=== PATIENT | male | born 1975 | race Caucasian/White ===

== ENCOUNTER → 2018-08-07 14:30 | Outpatient (CLI) | payer OTHER, SELFPAY ==
--- NOTE | 2018-08-07 14:34 | VDLE_ITS ---
Reason For Study: LEG PAIN RIGHT LEFT GSV is normal. CFV is compressible, spontaneous, phasic, CFV is compressible, spontaneous, phasic, competent, and demonstrates normal competent and demonstrates normal augmentation. augmentation. FV is compressible, spontaneous, phasic, competent and demonstrates normal augmentation. POP V is compressible, spontaneous, phasic, competent and demonstrates normal augmentation. T/P Trunk is compressible. PTV is compressible. RT PerV is compressible. Procedure Exam performed in department. A preliminary report was called and/or faxed to [facility]. Interpretation Summary Deep veins of the right lower extremity are patent and compressible segmentally. There is no evidence of right lower extremity deep vein thrombosis. Valvular competence appears intact within the proximal deep venous system on the right . The right greater saphenous vein appears patent and compressible segmentally. Ordering Physician: Starr Levy Referring Physician: Starr Levy Performed By: Earline Webster RVT
== END ==
PROVIDERS: Family Provider Family Medicine; PCP Family Medicine; Visit Provider Nurse Practitioner Family
DX: M79.661 Pain in right lower leg (principal)
CPT/HCPCS: 93971

== ENCOUNTER 2019-01-10 16:40 | Emergency (ER) | payer OTHER, SELFPAY ==
[2019-01-10 16:42] VITALS: BP 165/92; PULSE 79; RESP 18; TEMP 36.3; O2SAT 99; BMI 36.8
[2019-01-10] MEDS: Tetracaine 0.5% Ophthalmic Bottle 1 DRP RIGHT EYE (18:32)
--- NOTE | 2019-01-10 18:51 | ED.DCSUM_ITS ---
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 Last evening he thought he felt a foreign body sensation in his right eye. He was not able to visualize anything. After sleeping all night he woke up this morning with no pain and thought it was gone. This afternoon pain seemed to return. He does not normally wear glasses or contacts. He states he was wearing eye protection yesterday was using a surface grinder. Physical Examination: Vital signs significant for blood pressure 165/92, otherwise unremarkable. Patient sitting in a well lit room in no acute distress. Head neck examination significant for diffuse conjunctival injection of the right eye. Eyelids are normal. Extraocular movements are intact. Quick look with light does not reveal obvious foreign body. Test Results: [] Emergency Department Course and Treatment: Tetracaine is applied to the eye. This does improve his symptoms somewhat. Slit-lamp examination is performed and there is a small metallic foreign body noted directly over the pupil. Patient is down in the bed. Additional tetracaine drops were applied. Unfortunately I am unable to visualize the foreign body without aid of the slit- lamp. With it being directly over his pupil I do not want to start causing more damage and cause further abrasion. I spoke with ophthalmology and patient can be seen in the office tomorrow. He will be given gentamicin drops to help prevent infection. Treatment Plan: [] Disposition: Discharge Impression: Right corneal foreign body This note was generated with [employer] dictation software. It may contain incorrect words, spelling, and punctuation that were not noted in review of the chart prior to signing ED Disposition - Plan for ED Patient: Disposition: Home or Assisted Living Instructions: ED Foreign Body Cornea Referrals: Cuco Nguyễn MD [STAFF PHYSICIAN] - 1 Day Additional Instructions: Call Dr Nguyễn's office in the morning for an appointment time - he will see you tomorrow. Use 1 drop antibiotic to right eye 4x/day.
[2019-01-10 19:10] VITALS: RESP 16
[2019-01-10] MEDS: Gentamicin Sulfate 1 OPTH.BTL 1 DRP RIGHT EYE (19:10)
== END 2019-01-10 19:11 | disposition home or self-care (01) ==
PROVIDERS: Emergency Provider Emergency Medicine; Family Provider Family Medicine; PCP Family Medicine
DX: T15.01XA Foreign body in cornea, right eye, initial encounter (principal); X58.XXXA Exposure to other specified factors, initial encounter; Y93.89 Activity, other specified; Y92.89 Other specified places as the place of occurrence of the external cause; Y99.0 Civilian activity done for income or pay; E11.9 Type 2 diabetes mellitus without complications; I10 Essential (primary) hypertension; Z79.84 Long term (current) use of oral hypoglycemic drugs; Z79.899 Other long term (current) drug therapy; Z87.442 Personal history of urinary calculi
CPT/HCPCS: 99283

== ENCOUNTER 2019-05-06 13:57 | Emergency (ER) | payer OTHER, SELFPAY ==
[2019-05-06 13:59] VITALS: BP 144/84; PULSE 101; RESP 18; TEMP 36.6; BMI 38.5
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
[2019-05-06] MEDS: diazePAM 5 MG Tablet PO (15:04)
[2019-05-06] MEDS: Orphenadrine 60 MG/2 ML Ampul IM (15:05)
[2019-05-06] MEDS: Ketorolac 60 MG/2 ML Vial IM (15:05)
--- NOTE | 2019-05-06 15:30 | RAD_ITS ---
STUDY: X-RAY - UNILATERAL RIBS ( LEFT ) WITH CHEST REASON FOR EXAM: Male, 44 years old. Left-sided posterior rib pain and left scapula pain since trauma TECHNIQUE - RIBS: 5 view(s) of the ribs. TECHNIQUE - CHEST: Single view COMPARISON: None. FINDINGS -no lung consolidation, pleural effusion or pneumothorax. Cardiac size within normal limits. Osseous structures demonstrate no acute abnormalities. Visualized ribs demonstrate no definite evidence for an acute fracture. Degenerative changes in the costovertebral joints seen. IMPRESSION: No definite evidence for acute left-sided rib fractures. No pneumothorax or consolidation. Electronically Signed: Micah Shipman, at 16:11 EDT Tel , Service support , RAD/Ribs Uni Min 3V w/PA Chest
[2019-05-06 15:36] LABS: D-Dimer Quantitative (DVT/PE) 0.68 FEU/ug/m (0.27-0.49)
--- NOTE | 2019-05-06 15:40 | CT_ITS ---
STUDY: CTA CHEST REASON FOR EXAM: Male, 44 years old. Elevated d-dimer left-sided shoulder blade RADIATION DOSAGE (If Supplied By Facility): CTDIvol = ( 19.74 ) mGy, DLP = ( 902.16 ) mGycm TECHNIQUE: The examination was performed with the intravenous administration of 100 IV Isovue 370. Post-processing of the angiographic images was performed, with multiplanar reformation and 3D reconstruction. Individualized dose optimization techniques were used for this CT. COMPARISON: None. FINDINGS: Pulmonary artery and its branches demonstrate no evidence for filling defects. Thoracic aorta is within normal limits. No pericardial effusion. No lung consolidation, pleural effusion or pneumothorax. Upper abdominal structures demonstrate no discrete mass. The spleen appears somewhat enlarged. Peripancreatic lymph nodes are seen. Hazy groundglass opacities noted bilaterally may relate with pulmonary congestion No evidence for mediastinal adenopathy. Degenerative changes of the thoracic spine. IMPRESSION: No evidence for pulmonary embolism. No evidence for aortic dissection. No consolidative process. Hazy bilateral groundglass opacities may relate with pulmonary congestive changes Electronically Signed: Micah Shipman, at 17:00 EDT Tel , Service support , CT/CTA Chest W/WO Contrast
--- NOTE | 2019-05-06 17:22 | ED.DEP ---
ED Disposition - Plan for ED Patient: Instructions: ED Spasm Muscle Prescriptions: Ibuprofen [Motrin] 800 mg PO TID PRN PRN #20 tablet PRN Reason: Pain cycloBENZAPRine HCl [Flexeril] 10 mg PO TID PRN #20 tablet PRN Reason: Muscle Spasm Referrals: Robert Pablo III, MD [Primary Care Provider] -
[2019-05-06 17:35] VITALS: BP 141/78; PULSE 83; RESP 15
== END 2019-05-06 17:35 | disposition home or self-care (01) ==
PROVIDERS: Emergency Provider Emergency Medicine; Family Provider Family Medicine; PCP Family Medicine
DX: S29.012A Strain of muscle and tendon of back wall of thorax, initial encounter (principal); V86.59XA Driver of other special all-terrain or other off-road motor vehicle injured in nontraffic accident, initial encounter; Y93.9 Activity, unspecified; Y92.9 Unspecified place or not applicable; Y99.9 Unspecified external cause status; E11.9 Type 2 diabetes mellitus without complications; I10 Essential (primary) hypertension; Z79.84 Long term (current) use of oral hypoglycemic drugs; Z79.899 Other long term (current) drug therapy
CPT/HCPCS: 71101; 71275; 85379; 96372; 99284; Q9967

== ENCOUNTER → 2022-06-30 | Outpatient (CLI) | payer OTHER, SELFPAY ==
[2022-06-30 08:32] LABS: Absolute Lymphocyte Count 1.28 X10^3/uL (0.83-4.51); Absolute Neutrophil Count 4.2 X10^3/uL (2.0-7.7); Basophil# 0.04 X10^3/uL; Basophil% 0.7 % (0-1); Eosinophil# 0.05 X10^3/uL; Eosinophils% 0.8 % (0-5); Hematocrit 44.8 % (40-54); Hemoglobin 15.2 g/dL (13.0-16.5); Lymphocyte # 1.28 X10^3/ul (0.83-4.51); Lymphocyte % 21.1 % (19-41); Mean Corp Hgb Conc 33.9 g/dL (32-36); Mean Corpuscular Hgb 31.6 pg (27.0-32.0); Mean Corpuscular Volume 93.1 fL (80-94); Mean Platelet Vol. 11.5 fl (6.2-12.0); Monocyte# 0.45 X10^3/uL; Monocyte% 7.4 % (0-10); NRBC Flagged by Analyzer 0 % (0-5); Neutrophil # 4.24 X10^3/uL (2.7-7.7); Neutrophil % 69.8 % (47-70); POSITIVE COUNT YES; Platelet Count 95 K/mm3 (150-450); RBC Distribution Width CV 11.9 % (11.6-14.6); RBC Distribution Width SD 41.2 fl (35.1-43.9); Red Blood Count 4.81 M/mm3 (4.6-6.2); White Blood Count 6.1 K/mm3 (4.4-11.0)
[2022-06-30 08:50] LABS: Vitamin D,25 Hydroxy 26.6 ng/mL
[2022-06-30 08:52] LABS: Hemoglobin A1c 9.5 % (3.8-5.6)
[2022-06-30 08:58] LABS: ALB/GLOB Ratio 1.1 RATIO (0.9-2.4); AST(SGOT) 60 U/L (15-37); Alanine Aminotransfer ALT/SGPT 124 U/L (16-61); Albumin, Serum 3.9 g/dL (3.2-5.0); Alkaline Phosphatase 120 U/L (45-117); Anion Gap 5 (5-15); BUN 14 mg/dL (7-18); BUN/Creat Ratio 16.6 RATIO (10-20); Calcium,Total 8.5 mg/dL (8.5-10.1); Chloride 100 mmol/L (98-107); Cholesterol 152 mg/dL (200); Creatinine, Serum 0.84 mg/dL (0.70-1.30); EST Glomerular Filtration Rate 103 mL/min (>60); Est Glom Filt Rate - Afr Amer 125 mL/min (>60); Globulin 3.5 g/dL (2.2-4.2); Glucose 178 mg/dL (74-106); High Density Lipoprotein 39 mg/dL; Protein, Total 7.4 g/dL (6.4-8.2); Sodium Level 136 mmol/L (136-145); Triglycerides 243 mg/dL; Very Low Density Lipoprotein 49 mg/dL (5-40)
== END | disposition home or self-care (01) ==
PROVIDERS: PCP Internal Medicine; Visit Provider Internal Medicine
DX: I10 Essential (primary) hypertension (principal); E11.9 Type 2 diabetes mellitus without complications; E78.1 Pure hyperglyceridemia; E78.00 Pure hypercholesterolemia, unspecified; E66.9 Obesity, unspecified; E55.9 Vitamin D deficiency, unspecified; Z12.5 Encounter for screening for malignant neoplasm of prostate
CPT/HCPCS: 80053; 80061; 82306; 83036; 84153; 84443; 85025; G0103

== ENCOUNTER → 2022-11-08 | Outpatient (CLI) | payer OTHER, SELFPAY ==
[2022-11-08 13:30] LABS: ALB/GLOB Ratio 1.1 RATIO (0.9-2.4); AST(SGOT) 47 U/L (15-37); Alanine Aminotransfer ALT/SGPT 130 U/L (16-61); Albumin, Serum 3.7 g/dL (3.2-5.0); Alkaline Phosphatase 145 U/L (45-117); Anion Gap 6 (5-15); BUN 15 mg/dL (7-18); BUN/Creat Ratio 17.3 RATIO (10-20); Calcium,Total 8.7 mg/dL (8.5-10.1); Chloride 99 mmol/L (98-107); Cholesterol 172 mg/dL (200); Creatinine, Serum 0.87 mg/dL (0.70-1.30); EST Glomerular Filtration Rate 100 mL/min (>60); Est Glom Filt Rate - Afr Amer 120 mL/min (>60); Globulin 3.5 g/dL (2.2-4.2); Glucose 222 mg/dL (74-106); High Density Lipoprotein 36 mg/dL; Potassium 4.2 mmol/L (3.5-5.1); Protein, Total 7.2 g/dL (6.4-8.2); Sodium Level 134 mmol/L (136-145); Triglycerides 365 mg/dL; Very Low Density Lipoprotein 73 mg/dL (5-40)
[2022-11-08 13:34] LABS: Hemoglobin A1c 10.8 % (3.8-5.6)
== END | disposition home or self-care (01) ==
LOC: BIMLAB 11:20
PROVIDERS: PCP Internal Medicine; Referring Provider Internal Medicine; Visit Provider Internal Medicine
DX: I10 Essential (primary) hypertension (principal); E11.9 Type 2 diabetes mellitus without complications; E78.1 Pure hyperglyceridemia; E78.00 Pure hypercholesterolemia, unspecified; E66.9 Obesity, unspecified
CPT/HCPCS: 36415; 80053; 80061; 83036

== ENCOUNTER 2022-11-16 15:10 | Emergency (ER) | payer OTHER, SELFPAY ==
[2022-11-16 15:11] VITALS: BP 146/83; PULSE 97; RESP 16; TEMP 36.4; O2SAT 96; BMI 37.5
--- NOTE | 2022-11-16 15:35 | ED.RN ---
Patient is aware to go to the [facility] by 6pm for urine drug screen but if still here at 6, will be able to call someone in. [place] does require testing
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
--- NOTE | 2022-11-16 15:54 | RAD_ITS ---
STUDY: X-RAY - RIGHT WRIST REASON FOR EXAM: Male, 47 years old. trauma TECHNIQUE: 3 view(s) of the wrist were obtained. COMPARISON: None. FINDINGS: Normal visualized distal radius and ulna. Normal radiocarpal articulation. Normal distal radioulnar articulation. Normal carpal bones. Normal carpal articulations. Normal carpometacarpal articulation of the thumb. Normal second through fifth carpometacarpal articulations. Normal visualized metacarpal bones. The soft tissue structures are unremarkable. RAD/Wrist min 3 Views IMPRESSION: Normal x-ray examination of the wrist. Electronically Signed: Marques Ponce MD at 16:46 EST ,
--- NOTE | 2022-11-16 15:55 | RAD_ITS ---
STUDY: X-RAY - PELVIS AND RIGHT HIP REASON FOR EXAM: Male, 47 years old. pain, trauma TECHNIQUE: 3 views of the pelvis and hip. COMPARISON: None. FINDINGS: There is a non-specific bowel gas pattern. Normal visualized soft tissue structures. Normal bilateral iliac wings, sacroiliac joints and visualized sacrum. Normal bilateral superior and inferior pubic rami. Normal pubic symphysis. Normal bilateral ischial tuberosities. Normal visualized femoral head. Normal acetabulum. Normal hip joint. RAD/HIP, UNI W/ Pelvis 2-3 Views IMPRESSION: Normal x-ray examination of the pelvis and hip. Electronically Signed: Marques Ponce MD at 16:47 EST ,
--- NOTE | 2022-11-16 15:55 | EDS_ITS ---
HPI History of Present Illness Chief Complaint: Fall Narrative Narrative: 47-year-old male who denies significant past medical history presents with injury mainly to his right side. While he was at work, he was helping to lift a snowplow and move it when the piece that he was holding threw him forward. He fell mainly onto his right side. He was wearing a hard hat. While he may have hit his head, there was no loss of consciousness. He denies any neck pain. No shoulder pain but states he is having pain in his right elbow and right wrist where he fell on it. He is right-hand dominant. He also has pain in his right hip and it is low back, mainly on the right side. He denies any loss of bowel or bladder, no other injury. He states that his current main areas of pain are his right wrist and elbow that is worse with movement, and his right hip and low back. Patient notes that he chronically has 3 vertebrae in his low back that point in different directions for which he has had therapy in the past. [facility] Medical History Arthritis Back problem Bone fracture Diabetes Frequent headaches Gout High cholesterol High triglycerides Hives Hypertension Home Medications cyclobenzaprine 10 mg tablet 10 mg PO TID PRN Muscle Spasm #20 tabs 05/06/19 [Rx Last Taken Unknown] ibuprofen 800 mg tablet 800 mg PO TID PRN PRN Pain #20 tabs 05/06/19 [Rx Last Taken Unknown] allopurinol 300 mg tablet 300 mg PO DAILY #90 tabs 09/30/22 [Rx Last Taken Unknown] lisinopril 20 mg tablet 20 mg PO DAILY #90 tabs 09/30/22 [Rx Last Taken Unknown] metformin 1,000 mg tablet 1,000 mg PO BIDCM #180 tabs 09/30/22 [Rx Last Taken Unknown] simvastatin 10 mg tablet 20 mg PO DAILY #90 tabs 11/01/22 [Rx Last Taken Unk nown] empagliflozin 10 mg tablet 10 mg PO DAILY #30 tabs 11/10/22 [Rx Last Taken Unknown] Allergy/AdvReac Type Severity Reaction Status Date / Time grass pollen Allergy Unknown unknown Verified 11/16/22 15:16 dichloralphenazone AdvReac Other Verified 11/16/22 15:16 [From Midrin] isometheptene mucate AdvReac Other Verified 11/16/22 15:16 [From Midrin] antacids AdvReac Nausea Uncoded 11/16/22 15:16 Family History Father Diabetes Myocardial infarction, Onset Age: 74 Prostate cancer Grandfather Heart disease Mother Hypertension Surgical History History of ankle surgery History of bunionectomy of both great toes History of knee surgery History of nasal surgery Social History Smoking Status: Never smoker alcohol intake: never substance use type: does not use what type of physical activity do you participate in: walking frequency: 3-4 times per week ROS ROS ED ROS Narrative Constitutional: No fever, no chills. HEENT: No sore throat. No neck pain. No loss of vision. No rhinorrhea. Cardiovascular: No chest pain. No palpitations. No pedal edema. Respiratory: No cough, no shortness of breath. Abdominal: No abdominal pain. No nausea. No vomiting. Genitourinary: No dysuria. No hematuria. Musculoskeletal: No myalgias. Right wrist and right elbow pain worse with movement. Right hip and right low back pain. Neurologic: No headaches. No dizziness. No lightheadedness. No loss of bowel or bladder. No loss of consciousness. Skin: No rash. No change in color. Psychiatric: No depression. No anxiety. EXAM Physical Exam Narrative Exam Narrative: Afebrile. Vital signs noted. HEENT: Normocephalic. Atraumatic. PERRL, EOMI. Neck soft and supple. No point tenderness or step off. Cardiovascular: Regular rate and rhythm. No murmurs, rubs, or gallops appreciated. Respiratory: No tachypnea. Lungs clear to auscultation bilaterally. Gastrointestinal: Abdomen soft, nontender, with normoactive bowel sounds. No rebound or guarding. Neurological: Awake. Alert. Nonfocal, nonlateralizing. Straight leg raising is negative bilaterally in a semirecumbent position. Neurovascularly intact bilateral lower extremities. Flexion and extension mechanisms intact bilaterally Skin: No rash. Normal color. No pallor. Musculoskeletal: No pedal edema. Full range of motion extremities. No pain with logrolling of right femur. Mild tenderness to palpation right paraspinal area, no palpable step-off. Mild tenderness diffusely right proximal radius near radial head. Full range of motion right wrist. Able to oppose thumb. Const Vital Signs: 11/16/22 15:11 11/16/22 16:33 Temperature 97.6 F L Temperature Source Temporal Pulse Rate 97 Respiratory Rate 16 Respiratory Effort Normal Non-Labored Respiratory Depth Normal Respiratory Pattern Normal Blood Pressure 146/83 H Blood Pressure Mean 104 Pulse Ox 96 Oxygen Delivery Method Room Air Nasal Cannula MDM MDM MDM Narrative Medical decision making narrative: I do not feel that CT of the brain is indicated. I will obtain a CT of his lumbar spine given his right paraspinal musculature pain. I will obtain x-rays of the right wrist, elbow, and pelvis with hip, right. CT of the lumbar spine shows an acute nondisplaced oblique fractures of the lateral aspect of the superior endplate of L2 limited to the anterior column. In discussion with the radiologist over the telephone, he states that this is more through an osteophyte which she has multiple of, and it is not an unstable fracture. My interpretation of his right wrist x-ray shows no acute fracture. My interpretation of his right hip and pelvis x-ray shows no evidence of fracture or dislocation. My interpretation of his right elbow x-ray also shows no fracture or dislocation. At this point in time, I feel he be discharged to follow-up with the [facility] clinic or [place] [employer] provider of his choice. He will take [id number] medications as needed. I feel he can be discharged safely home with follow-up. Return instructions were reviewed. Disposition is discharged home in stable condition. Radiography Diagnostic Testing: Clinical Impression(s) from Imaging Studies Lumbar Spine CT 11/16/22 15:54 IMPRESSION: 1. Acute nondisplaced oblique fractures of the lateral aspect of the superior endplate of L2 limited to the anterior column. 2. Segmental anomaly at L3/L4 with levoscoliosis and diffuse degenerative disc disease. Electronically Signed: Marques Ponce MD at 16:43 EST , ADDENDUM: 11/16/22 2287 IMPRESSION: 1. Acute nondisplaced oblique fractures of the lateral aspect of the superior endplate of L2 limited to the anterior column. 2. Segmental anomaly at L3/L4 with levoscoliosis and diffuse degenerative disc disease. N.B. : The above Results were Read Back by Marques Ponce MD to Mahad Taylor MD, and understanding confirmed on 11/16/2022 16:50:40 (ET). Electronically Signed: Marques Ponce MD at 16:43 EST Reading Location ID and State: [id number] / [employer] Tel , Service support , Wrist X-Ray 11/16/22 15:54 IMPRESSION: Normal x-ray examination of the wrist. Electronically Signed: Marques Ponce MD at 16:46 EST Reading Location ID and State: [id number] / [employer] Tel , Service support , Hip/Pelvis X-Ray 11/16/22 15:55 IMPRESSION: Normal x-ray examination of the pelvis and hip. Electronically Signed: Marques Ponce MD at 16:47 EST Reading Location ID and State: [id number] / [employer] Tel , Service support , Elbow X-Ray 11/16/22 16:08 IMPRESSION: No acute fracture or dislocation. Electronically Signed: Marques Ponce MD at 16:44 EST Reading Location ID and State: [id number] / [employer] Tel , Service support , Discharge Plan Triage Chief Complaint: Fall ED Provider: Mahad Taylor Dx/Rx/DC Orders Clinical Impression: Fall, L2 vertebral fracture, Contusion of elbow, right, Contusion of hip, right, Contusion of right wrist Instructions: ED Contusion, Elbow, ED Mechanical Fall, ED Hip Contusion, ED Transverse Process Fracture Prescriptions: No Action empagliflozin 10 mg tablet 10 mg PO DAILY Qty: 30 3RF cyclobenzaprine 10 MG tablet 10 mg PO TID PRN (Reason: Muscle Spasm) Qty: 20 0RF ibuprofen 800 MG tablet 800 mg PO TID PRN PRN (Reason: Pain) Qty: 20 0RF allopurinol 300 mg tablet 300 mg PO DAILY Qty: 90 3RF lisinopril 20 mg tablet 20 mg PO DAILY Qty: 90 3RF metformin 1,000 mg tablet 1,000 mg PO BIDCM Qty: 180 3RF simvastatin 10 mg tablet 20 mg PO DAILY Qty: 90 3RF Primary Care Provider: Zoraida Wood Referrals: Zoraida Wood MD [Primary Care Provider] - [facility] [Non-Staff] - 1 Day Disposition Disposition: Home, Self Care
--- NOTE | 2022-11-16 16:08 | RAD_ITS ---
STUDY: X-RAY - RIGHT ELBOW REASON FOR EXAM: Male, 47 years old. trauma, pain TECHNIQUE: 3 view(s) of the elbow. COMPARISON: None. FINDINGS: Normal visualized humerus, radius and ulna. Normal radiocapitellar and ulnotrochlear articulations. Enthesophyte of the posterior olecranon at the triceps insertion. The soft tissue structures are unremarkable. RAD/Elbow min 3 Views IMPRESSION: No acute fracture or dislocation. Electronically Signed: Marques Ponce MD at 16:44 EST ,
--- NOTE | 2022-11-16 18:09 | ED.RN ---
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 PT UNABLE TO GO TO [facility] DO TO BEING DISCHARGED AFTER 1800, [facility] CLOS[facility] AT 1800. PT STATES HE WILL GO TOMORROW WHEN CLINIC IS OPEN. PER [facility] DRUG TESTING SCHEDULE, JEYSON HOUSING COORDINATOR. CALL PLACED TO JEYSON, SHE STATES SHE IS NOT HOUSING COORDINATOR, [facility] NOT HAVE ANYONE HOUSING COORDINATOR AND ALL DRUG TESTING WILL NEED TO BE DONE DURING [facility] BUSINESS HOURS. JEYSON WILL ALSO CALL PT'S EMPLOYER AND RELAY MESSAGE THAT PT WAS WILLING BUT UNABLE TO DO DRUG TESTING AT TIME OF ED VISIT.
== END 2022-11-16 18:18 | disposition home or self-care (01) ==
PROVIDERS: Emergency Provider Emergency Medicine; PCP Internal Medicine; Visit Provider Emergency Medicine
DX: S32.029A Unspecified fracture of second lumbar vertebra, initial encounter for closed fracture (principal); S50.01XA Contusion of right elbow, initial encounter; S70.01XA Contusion of right hip, initial encounter; S60.211A Contusion of right wrist, initial encounter; W19.XXXA Unspecified fall, initial encounter
CPT/HCPCS: 72131; 73080; 73110; 73502; 99282

== ENCOUNTER → 2023-03-14 | Outpatient (CLI) | payer OTHER, SELFPAY ==
[2023-03-14 12:57] LABS: AST(SGOT) 49 U/L (15-37); Alanine Aminotransfer ALT/SGPT 117 U/L (16-61); Albumin, Serum 3.7 g/dL (3.2-5.0); Alkaline Phosphatase 161 U/L (45-117); Anion Gap 4 (5-15); BUN 16 mg/dL (7-18); BUN/Creat Ratio 19.5 RATIO (10-20); Calcium,Total 8.7 mg/dL (8.5-10.1); Chloride 100 mmol/L (98-107); Cholesterol 238 mg/dL (200); Creatinine, Serum 0.82 mg/dL (0.70-1.30); EST Glomerular Filtration Rate 106 mL/min (>60); Est Glom Filt Rate - Afr Amer 128 mL/min (>60); Globulin 3.6 g/dL (2.2-4.2); Glucose 299 mg/dL (74-106); High Density Lipoprotein 31 mg/dL; Potassium 3.9 mmol/L (3.5-5.1); Protein, Total 7.3 g/dL (6.4-8.2); Sodium Level 130 mmol/L (136-145); Thyroid Stim Hormone (TSH) 2.33 uIU/mL (0.358-3.74); Triglycerides 756 mg/dL; Uric Acid 4.2 mg/dL (3.5-7.2)
== END | disposition home or self-care (01) ==
LOC: MFPLAB 09:38
PROVIDERS: PCP Internal Medicine; Visit Provider Family Medicine
DX: E11.9 Type 2 diabetes mellitus without complications (principal); M10.9 Gout, unspecified
CPT/HCPCS: 36415; 80053; 80061; 84403; 84443; 84550

== ENCOUNTER → 2023-04-28 | Outpatient (CLI) | payer OTHER, SELFPAY | END | disposition home or self-care (01) | LOC: MFPLAB 08:05 | PROVIDERS: PCP Family Medicine; Visit Provider Family Medicine | DX: Z00.00 Encounter for general adult medical examination without abnormal findings (principal) ==

== ENCOUNTER 2023-04-29 00:24 | Emergency (ER) | payer OTHER, SELFPAY ==
[2023-04-29 00:25] VITALS: BP 157/99; PULSE 95; RESP 14; TEMP 36.4; O2SAT 97; BMI 36.8
--- NOTE | 2023-04-29 00:36 | EX.ED.VIS.PS ---
HPI HPI - Psych History of Present Illness Chief Complaint: Suicidal Detail of Chief Complaint: Suicidal thoughts Informant: patient Narrative Narrative: Patient presents to the emergency department brought by police. He had had an argument with his and they have been having some marital issues that they are working through. Patient became upset and went outside and took his pistol with him. He does state that he had a fleeting thought of self-harm but does not think he would actually shoot himself or harm himself. called police and patient agreed to come to the ER voluntarily. Currently not feeling like he wants to harm himself. He is never made attempt to harm himself before. He has no psychiatric history otherwise. Not currently medicated for depression or anxiety. He denies feeling homicidal. He denies hallucinations. When asked why he took the gun with him [place] he was in an be out for a while and there are coyotes but had no intent on harming himself. [facility] Medical History Arthritis Back problem Bone fracture Diabetes Frequent headaches Gout High cholesterol High triglycerides Hives Hypertension Home Medications allopurinol 300 mg tablet 300 mg PO DAILY #90 tabs 09/30/22 [Rx Last Taken Unknown] lisinopril 20 mg tablet 20 mg PO DAILY #90 tabs 09/30/22 [Rx Last Taken Unknown] metformin 1,000 mg tablet 1,000 mg PO BIDCM #180 tabs 09/30/22 [Rx Last Taken Unknown] simvastatin 10 mg tablet 20 mg PO DAILY #90 tabs 11/01/22 [Rx Last Taken Unknown] cyclobenzaprine 10 mg tablet 10 mg PO TID PRN Muscle Spasm #20 tabs 11/26/22 [Rx Last Taken Unknown] semaglutide 7 mg tablet (Rybelsus) 7 mg PO DAILY 04/29/23 [History Last Taken Unknown] Allergy/AdvReac Type Severity Reaction Status Date / Time grass pollen Allergy Unknown unknown Verified 04/29/23 00:33 aluminum hydroxide AdvReac Nausea Verified 04/29/23 00:33 [From Gelusil Antacid and Anti-Gas] dichloralphenazone AdvReac Other Verified 04/29/23 00:33 [From Midrin] isometheptene mucate AdvReac Other Verified 04/29/23 00:33 [From Midrin] magnesium hydroxide AdvReac Nausea Verified 04/29/23 00:33 [From Gelusil Antacid and Anti-Gas] simethicone AdvReac Nausea Verified 04/29/23 00:33 [From Gelusil Antacid and Anti-Gas] Family History Father Diabetes Myocardial infarction, Onset Age: 74 Prostate cancer Grandfather Heart disease Mother Hypertension Surgical History History of ankle surgery History of bunionectomy of both great toes History of knee surgery History of nasal surgery Social History Smoking Status: Never smoker alcohol intake: never substance use type: does not use what type of physical activity do you participate in: walking frequency: 3-4 times per week ROS ROS ED Review of Systems ROS Unobtainable: other Constitutional Constitutional ED: Reports lethargy; Denies chills, fever(s), sweats or weight loss Eyes Eyes: Denies blurry vision, change in vision or diplopia ENT ENT ED: Denies rhinorrhea or sore throat Cardiovascular Cardiovascular: Denies chest pain, orthopnea or racing heartbeat Respiratory/Chest Respiratory/Chest: Denies cough, dyspnea, dyspnea on exertion, orthopnea or sputum Gastrointestinal Gastrointestinal: Denies abdominal pain, diarrhea, nausea or vomiting Genitourinary Genitourinary ED: Denies dysuria, hematuria or urinary frequency Musculoskeletal Musculoskeletal: Denies arthralgias, back pain, myalgias or neck pain Integumentary Denies abscess, Abrasions or rash Neurologic Neurologic: Denies headache(s) or weakness Psychiatric Psychiatric: Denies anxiety, depression or suicidal thoughts Endocrine Endocrinology: Denies polydipsia, polyphagia or polyuria Hematologic/Lymphatic Hematologic/Lymphatic: Denies easy bleeding, easy bruising or lymphadenopathy Allergic/Immunologic Allergic/Immunologic ED: Denies mouth swelling, tongue swelling or urticaria EXAM Physical Exam Const Vital Signs: 04/29/23 00:25 04/29/23 01:24 Temperature 97.5 F L Temperature Source Temporal Pulse Rate 95 Respiratory Rate 14 16 Blood Pressure 157/99 H Blood Pressure Mean 118 Pulse Ox 97 Oxygen Delivery Method Room Air Positive well nourished and well developed General Appearance ED: well developed and NAD HEENT Reports TM's clear and moist mucous membranes normocephalic and atraumatic; Negative for trauma or tenderness Tympanic Membrane ED: Yes TM's clear Eyes PERRL and EOMs intact bilaterally General Eye ED: Negative for pale conjunctiva or scleral icterus Neck no lymphadenopathy, supple and no JVD General: Negative for tenderness Chest Wall inspection of chest normal and palpation of chest normal Chest: Negative for tenderness Resp normal respiratory effort and clear to auscultation bilaterally Effort and Inspection: Negative for respiratory distress or pain with movement Auscultation: Negative for rhonchi, wheezes or diminished lung sounds Cardio regular rate, regular rhythm, S1 normal heart sound, S2 normal heart sound and no murmurs Peripheral Pulses: pulses 2+ throughout GI normal to inspection, nondistended, normoactive bowel sounds, soft to palpation, non-tender, non-distended and no masses Back/Spine no CVA tenderness and no thoracic nor lumbar tenderness Extremity normal to inspection General Extremety ED: Negative for edema General Extremity: Negative for edema Neuro oriented x3, CN's II-XII intact bilaterally, no sensory deficits noted and gait normal Sensorium / Orientation: awake, alert, oriented to person, oriented to place and oriented to time Motor Exam: strength 5/5 throughout and strength abnormal Psych mental status grossly normal Skin no rashes or lesions noted and no wounds MDM MDM MDM Narrative Medical decision making narrative: Patient presents with fleeting thoughts of wanting to harm himself but then thought better of it. Patient presented voluntarily with police officers. He currently denies wanting to harm himself and feels like he can contract for safety. He denies prior history of depression or suicide attempts. Patient had basic labs obtained that were normal as well as urine tox screen and alcohol that were negative. Patient was evaluated by crisis and they feel he can contract for safety. He is in agreement with plan and they can follow-up with him as an outpatient. Crisis attempted to contact patient's however she did not answer the phone and they did live leave a message with her. This point patient will be discharged home and advised to follow-up with the counseling center or return to the ER should he have any concerns about his safety. Patient denies any homicidal ideation. Lab Data Attestation: I reviewed the patient's lab results. Labs: Laboratory Results - last 24 hr 04/29/23 04/29/23 04/29/23 00:41 00:41 00:41 WBC 6.9 RBC 5.10 Hgb 16.2 Hct 46.1 MCV 90.4 MCH 31.8 MCHC 35.1 RDW Std Deviation 39.9 RDW Coeff of Edwin 12.0 Plt Count 90 L MPV 10.9 Immature Gran % (Auto) 0.100 Neut % (Auto) 75.9 H Lymph % (Auto) 15.5 L [place] % (Auto) 7.4 Eos % (Auto) 0.7 Baso % (Auto) 0.4 Absolute Neuts (auto) 5.2 Absolute Lymphs (auto) 1.06 Nucleated RBC % 0 Sodium 137 Potassium 4.1 Chloride 104 Carbon Dioxide 24.0 Anion Gap 9 BUN 18 Creatinine 0.96 Estim Creat Clear Calc 111.25 Est GFR (MDRD) Af Amer 107 Est GFR (MDRD) Non-Af 88 BUN/Creatinine Ratio 18.7 Glucose 310 H Calcium 8.8 Urine Opiates Screen Urine Methadone Screen Ur Barbiturates Screen Ur Phencyclidine Scrn Ur Amphetamines Screen MDMA (Ecstasy) Screen U Benzodiazepines Scrn Urine Cocaine Screen U Cannabinoids Screen Ur Drug Screen Comment Ethyl Alcohol < 3.0 04/29/23 00:55 WBC RBC Hgb Hct MCV MCH MCHC RDW Std Deviation RDW Coeff of Edwin Plt Count MPV Immature Gran % (Auto) Neut % (Auto) Lymph % (Auto) [place] % (Auto) Eos % (Auto) Baso % (Auto) Absolute Neuts (auto) Absolute Lymphs (auto) Nucleated RBC % Sodium Potassium Chloride Carbon Dioxide Anion Gap BUN Creatinine Estim Creat Clear Calc Est GFR (MDRD) Af Amer Est GFR (MDRD) Non-Af BUN/Creatinine Ratio Glucose Calcium Urine Opiates Screen NEGATIVE Urine Methadone Screen NEGATIVE Ur Barbiturates Screen NEGATIVE Ur Phencyclidine Scrn NEGATIVE Ur Amphetamines Screen NEGATIVE MDMA (Ecstasy) Screen NEGATIVE U Benzodiazepines Scrn NEGATIVE Urine Cocaine Screen NEGATIVE U Cannabinoids Screen NEGATIVE Ur Drug Screen Comment Ethyl Alcohol Discharge Plan Triage Chief Complaint: Suicidal ED Provider: Ac Kwan Dx/Rx/DC Orders Clinical Impression: Depression Instructions: CONTRACT, No Harm, ED Depression Prescriptions: No Action cyclobenzaprine 10 mg tablet 10 mg PO TID PRN (Reason: Muscle Spasm) Qty: 20 0RF Rybelsus 7 mg Tablet 7 mg PO DAILY allopurinol 300 mg tablet 300 mg PO DAILY Qty: 90 3RF lisinopril 20 mg tablet 20 mg PO DAILY Qty: 90 3RF metformin 1,000 mg tablet 1,000 mg PO BIDCM Qty: 180 3RF simvastatin 10 mg tablet 20 mg PO DAILY Qty: 90 3RF Primary Care Provider: Sd Cortez Referrals: Sd Cortez MD [Primary Care Provider] - Activity Restrictions/Additional Instructions: Please follow-up with the counseling center as instructed. Disposition Disposition: Home, Self Care
[2023-04-29 00:48] LABS: Absolute Lymphocyte Count 1.06 X10^3/uL (0.83-4.51); Absolute Neutrophil Count 5.2 X10^3/uL (2.0-7.7); Basophil# 0.03 X10^3/uL; Basophil% 0.4 % (0-1); Eosinophil# 0.05 X10^3/uL; Eosinophils% 0.7 % (0-5); Hematocrit 46.1 % (40-54); Hemoglobin 16.2 g/dL (13.0-16.5); Lymphocyte # 1.06 X10^3/ul (0.83-4.51); Lymphocyte % 15.5 % (19-41); Mean Corp Hgb Conc 35.1 g/dL (32-36); Mean Corpuscular Hgb 31.8 pg (27.0-32.0); Mean Corpuscular Volume 90.4 fL (80-94); Mean Platelet Vol. 10.9 fl (6.2-12.0); Monocyte# 0.51 X10^3/uL; Monocyte% 7.4 % (0-10); NRBC Flagged by Analyzer 0 % (0-5); Neutrophil % 75.9 % (47-70); POSITIVE COUNT YES; Platelet Count 90 K/mm3 (150-450); RBC Distribution Width SD 39.9 fl (35.1-43.9); White Blood Count 6.9 K/mm3 (4.4-11.0)
[2023-04-29 01:08] LABS: Alcohol, Blood (Medical)-Serum < 3.0 mg/dL; Anion Gap 9 (5-15); BUN 18 mg/dL (7-18); BUN/Creat Ratio 18.7 RATIO (10-20); Calcium,Total 8.8 mg/dL (8.5-10.1); Chloride 104 mmol/L (98-107); Creatinine, Serum 0.96 mg/dL (0.70-1.30); EST Glomerular Filtration Rate 88 mL/min (>60); Est Glom Filt Rate - Afr Amer 107 mL/min (>60); Estimated Creatinine Clearance 111.25 ml/min; Glucose 310 mg/dL (74-106); Potassium 4.1 mmol/L (3.5-5.1); Sodium Level 137 mmol/L (136-145)
[2023-04-29 01:24] VITALS: RESP 16
--- NOTE | 2023-04-29 01:31 | NURSING ---
CALLED CRISIS AT [id number]
[2023-04-29 02:04] LABS: Amphetamine Urine VISTA NEGATIVE (<1000 ng/mL); Barbiturate Urine VISTA NEGATIVE (< 200 ng/mL); Benzodiazepine Urine VISTA NEGATIVE (< 200 ng/mL); Cocaine Urine VISTA NEGATIVE (< 300 ng/mL); Ecstacy Urine VISTA NEGATIVE (< 500 ng/mL); Methadone Urine VISTA NEGATIVE (< 300 ng/mL); PCP Urine VISTA NEGATIVE (< 25 ng/mL); THC Urine VISTA NEGATIVE (< 50 ng/mL); Vista UDS pH Range 4
[2023-04-29 02:20] VITALS: BP 149/74; PULSE 87; RESP 17; O2SAT 99
--- NOTE | 2023-04-29 02:45 | ED.RN ---
SAFETY PLAN SIGNED BY PT AND IN AGREEMENT WITH PLAN. COPY GIVEN TO PT AND ORIGINAL IN CHART.
== END 2023-04-29 02:56 | disposition home or self-care (01) ==
PROVIDERS: Emergency Provider Emergency Medicine; PCP Family Medicine; Visit Provider Emergency Medicine
DX: F32.A Depression, unspecified (principal); E11.9 Type 2 diabetes mellitus without complications; Z63.0 Problems in relationship with spouse or partner; E78.00 Pure hypercholesterolemia, unspecified; R45.851 Suicidal ideations; I10 Essential (primary) hypertension; M10.9 Gout, unspecified; Z79.84 Long term (current) use of oral hypoglycemic drugs; Z79.899 Other long term (current) drug therapy
CPT/HCPCS: 80048; 80307; 82077; 85025; 87426; 99283

== ENCOUNTER → 2024-01-16 | Outpatient (CLI) | payer OTHER, SELFPAY ==
[2024-01-16 10:56] LABS: Vitamin B12 498 pg/mL (211-911)
[2024-01-16 11:29] LABS: AST(SGOT) 68 U/L (15-37); Alanine Aminotransfer ALT/SGPT 146 U/L (16-61); Albumin, Serum 3.8 g/dL (3.2-5.0); Alkaline Phosphatase 186 U/L (45-117); Anion Gap 5 (5-15); BUN 13 mg/dL (7-18); BUN/Creat Ratio 15.5 RATIO (10-20); Chloride 100 mmol/L (98-107); Cholesterol 150 mg/dL (200); Creatinine, Serum 0.84 mg/dL (0.70-1.30); EST Glomerular Filtration Rate 103 mL/min (>60); Est Glom Filt Rate - Afr Amer 125 mL/min (>60); Globulin 3.7 g/dL (2.2-4.2); Glucose 253 mg/dL (74-106); High Density Lipoprotein 39 mg/dL; PSA,Total - Annual Screen 0.37 ng/mL (0.00-4.00); Potassium 4.3 mmol/L (3.5-5.1); Protein, Total 7.5 g/dL (6.4-8.2); Sodium Level 135 mmol/L (136-145); Thyroid Stim Hormone (TSH) 2.63 uIU/mL (0.358-3.74); Triglycerides 256 mg/dL; Very Low Density Lipoprotein 51 mg/dL (5-40)
== END | disposition home or self-care (01) ==
PROVIDERS: PCP Family Medicine; Referring Provider Family Medicine; Visit Provider Family Medicine
DX: Z12.5 Encounter for screening for malignant neoplasm of prostate (principal); E11.65 Type 2 diabetes mellitus with hyperglycemia; E78.5 Hyperlipidemia, unspecified
CPT/HCPCS: 36415; 80053; 80061; 82607; 84153; 84403; 84443; G0103

== ENCOUNTER 2024-03-05 17:40 | Emergency (ER) | payer OTHER, SELFPAY ==
[2024-03-05 17:40] VITALS: BP 167/90; PULSE 93; RESP 20; TEMP 36.4; O2SAT 96; BMI 38.4
--- NOTE | 2024-03-05 18:22 | CT_ITS ---
EXAM: CT ABDOMEN AND PELVIS WITH INTRAVENOUS CONTRAST CLINICAL INDICATION: llq abdominal pain TECHNIQUE: Helically acquired images were obtained of the abdomen and pelvis with intravenous contrast. This CT exam was performed using one or more of the following dose reduction techniques: automated exposure control, adjustment of the mA and/or kV according to patient size, and/or use of iterative reconstruction technique. CONTRAST: IV 100mL Isovue-300 COMPARISON: No relevant prior studies available. FINDINGS: LOWER THORAX: Unremarkable. Lung bases are clear. No cardiomegaly. No significant pericardial effusion. ABDOMEN: LIVER: The liver is diffusely decreased in attenuation compatible with fatty infiltration. GALLBLADDER AND BILE DUCTS: Unremarkable. No calcified gallstones. No gallbladder distention or wall edema. No intra- or extrahepatic biliary ductal dilation. PANCREAS: Unremarkable. No focal cystic or solid mass. SPLEEN: Unremarkable. Normal size without focal cystic or solid mass. ADRENALS: Unremarkable. No nodules. KIDNEYS AND URETERS: Unremarkable. Normal renal size and position. No hydronephrosis. STOMACH AND BOWEL: There are diverticula seen in the descending and sigmoid colon with very minimal inflammation surrounding the distal descending colon which may represent early diverticulitis. There is no abscess or perforation. There is also minimal inflammation in the fat surrounding the rectum. No stomach or bowel distention. PELVIS: APPENDIX: No evidence of acute appendicitis. BLADDER: Unremarkable. REPRODUCTIVE: Unremarkable as visualized. No mass. ABDOMEN and PELVIS: INTRAPERITONEAL SPACE: Unremarkable. No ascites or other fluid collection. No free air. BONES/JOINTS: Unremarkable. No suspicious lytic or blastic abnormality. SOFT TISSUES: Unremarkable. No discrete abdominal or pelvic wall hernia. VASCULATURE: Unremarkable. Abdominal aorta is non-dilated. LYMPH NODES: Unremarkable. No enlarged lymph nodes. CT/Abdomen/Pelvis W IV Cont ONLY IMPRESSION: Diverticula in the descending colon with minimal surrounding inflammation which may represent early diverticulitis. There is also minimal haziness in the fat surrounding the rectum possibly representing proctitis. There is no abscess or perforation. Electronically Signed: Gonzales Mckeon MD at 19:43 EDT ,
[2024-03-05 18:23] LABS: Absolute Lymphocyte Count 1.29 X10^3/uL (0.83-4.51); Absolute Neutrophil Count 4.6 X10^3/uL (2.0-7.7); Basophil# 0.03 X10^3/uL; Basophil% 0.5 % (0-1); Eosinophil# 0.05 X10^3/uL; Eosinophils% 0.8 % (0-5); Hematocrit 43.5 % (40-54); Hemoglobin 15.2 g/dL (13.0-16.5); Lymphocyte # 1.29 X10^3/ul (0.83-4.51); Lymphocyte % 19.7 % (19-41); Mean Corp Hgb Conc 34.9 g/dL (32-36); Mean Corpuscular Hgb 32.1 pg (27.0-32.0); Mean Corpuscular Volume 91.8 fL (80-94); Monocyte# 0.58 X10^3/uL; Monocyte% 8.8 % (0-10); NRBC Flagged by Analyzer 0 % (0-5); POSITIVE COUNT YES; Platelet Count 92 K/mm3 (150-450); RBC Distribution Width CV 12.1 % (11.6-14.6); RBC Distribution Width SD 40.5 fl (35.1-43.9); Red Blood Count 4.74 M/mm3 (4.6-6.2); White Blood Count 6.6 K/mm3 (4.4-11.0)
[2024-03-05 18:38] LABS: Anion Gap 7 (5-15); BUN 16 mg/dL (7-18); Chloride 103 mmol/L (98-107); Creatinine, Serum 0.89 mg/dL (0.70-1.30); EST Glomerular Filtration Rate 96 mL/min (>60); Est Glom Filt Rate - Afr Amer 117 mL/min (>60); Glucose 134 mg/dL (74-106); Potassium 4.1 mmol/L (3.5-5.1); Sodium Level 136 mmol/L (136-145)
[2024-03-05 19:17] VITALS: BP 151/80; PULSE 82; RESP 19; O2SAT 96
[2024-03-05 19:26] LABS: Bacteria 0 SEEN /hpf (None Seen); Mucous, Urine 0 SEEN /hpf (<or=2+); Red Blood Cells-Urine 0 SEEN /hpf (0-5)
[2024-03-05 19:30] LABS: Color, Urine Yellow (Yellow); Glucose, Dipstick Normal (Normal); Ketone-Dipstick Negative (Negative); Leukocyte Esterase-Dipstick 25 /ul (Negative); Nitrite-Dipstick Negative (Negative); Occult Blood-Urine Negative /ul (Negative); Protein-Dipstick 15 mg/dl (Negative); Specific Gravity, Urine 1.015 (1.002-1.030); Urine Bilirubin Dipstick Negative (Negative); Urine Clarity Sl. Cloudy (Clear); Urine Urobilinogen Normal (Normal)
[2024-03-05] MEDS: Ondansetron 4 MG/2 ML Vial IV (19:59)
[2024-03-05 20:06] LABS: White Blood Cells 5-10 SEEN /hpf (0-5)
[2024-03-05 20:07] LABS: Squamous Epithelial Cells - UA 0-5 SEEN /hpf (0-5)
--- NOTE | 2024-03-05 20:45 | EDS_ITS ---
HPI HPI - GI History of Present Illness Chief Complaint: Flank Pain Narrative Narrative: 48-year-old male presenting with left lower quadrant abdominal pain which started really overnight and yesterday in the evening. He has had some GI discomfort with the last couple of weeks but it is really localized to left lower quadrant since then. The patient also has nausea. He had no diarrhea or constipation. No fevers at home. He is intermittently nauseous. Patient has history of kidney stone in the past but does not feel particularly the same. He does have history of diverticulitis as well. PFSH PFS Medical History Arthritis Back problem Bone fracture Diabetes Frequent headaches Gout High cholesterol High triglycerides Hives Hypertension Home Medications allopurinol 300 mg tablet 300 mg PO DAILY #90 tabs 09/30/22 [Rx Last Taken Unknown] lisinopril 20 mg tablet 20 mg PO DAILY #90 tabs 09/30/22 [Rx Last Taken Unknown] metformin 1,000 mg tablet 1,000 mg PO BIDCM #180 tabs 09/30/22 [Rx Last Taken Unknown] simvastatin 10 mg tablet 20 mg (2 x 10 mg) PO DAILY #90 tabs 11/01/22 [Rx Last Taken Unknown] cyclobenzaprine 10 mg tablet 10 mg PO TID PRN Muscle Spasm #20 tabs 11/26/22 [Rx Last Taken Unknown] glimepiride 2 mg tablet 2 mg PO DAILY 07/10/23 [History Last Taken Unknown] semaglutide 7 mg tablet (Rybelsus) 14 mg PO DAILY 07/10/23 [History Last Taken Unknown] amoxicillin 875 mg-potassium clavulanate 125 mg tablet 1 tab PO BID #20 tabs 03/05/24 [Rx Last Taken Unknown] ondansetron 4 mg disintegrating tablet 4 mg PO Q8H PRN PRN Nausea #14 tabs 03/05/24 [Rx Last Taken Unknown] Allergy/AdvReac Type Severity Reaction Status Date / Time grass pollen Allergy Unknown unknown Verified 07/10/23 09:36 aluminum hydroxide AdvReac Nausea Verified 07/10/23 09:36 [From Gelusil Antacid and Anti-Gas] dichloralphenazone AdvReac Other Verified 07/10/23 09:36 [From Midrin] isometheptene mucate AdvReac Other Verified 07/10/23 09:36 [From Midrin] magnesium hydroxide AdvReac Nausea Verified 07/10/23 09:36 [From Gelusil Antacid and Anti-Gas] simethicone AdvReac Nausea Verified 07/10/23 09:36 [From Gelusil Antacid and Anti-Gas] Family History Father Diabetes Myocardial infarction, Onset Age: 74 Prostate cancer Grandfather Heart disease Mother Hypertension Surgical History History of ankle surgery History of bunionectomy of both great toes History of knee surgery History of nasal surgery Social History Smoking Status: Never smoker alcohol intake: never substance use type: does not use what type of physical activity do you participate in: walking frequency: 3-4 times per week ROS ROS ED Constitutional Constitutional ED: Denies chills, fever(s) or sweats Eyes Eyes: Denies blurry vision or change in vision ENT ENT ED: Denies ear pain or sore throat Cardiovascular Cardiovascular: Denies chest pain, palpitations or racing heartbeat Respiratory/Chest Respiratory/Chest: Denies cough, dyspnea or sputum Gastrointestinal Gastrointestinal: Reports abdominal pain and nausea; Denies constipation, diarrhea or vomiting Genitourinary Genitourinary ED: Denies dysuria, hematuria or urinary frequency Musculoskeletal Musculoskeletal: Denies arthralgias, myalgias or neck pain Integumentary Denies abscess, Abrasions or rash Neurologic Neurologic: Denies headache(s), paresthesias or weakness Psychiatric Psychiatric: Denies anxiety, depression, suicidal ideation or suicidal thoughts Endocrine Endocrinology: Denies polydipsia or polyuria EXAM Physical Exam Const Vital Signs: 03/05/24 17:40 03/05/24 19:17 Temperature 97.5 F L Temperature Source Temporal Pulse Rate 93 82 Respiratory Rate 20 H 19 H Blood Pressure 167/90 H 151/80 H Blood Pressure Mean 115 103 Pulse Ox 96 96 Oxygen Delivery Method Room Air Room Air Positive well nourished General Appearance ED: NAD HEENT Reports moist mucous membranes normocephalic Eyes PERRL Neck no lymphadenopathy Resp normal respiratory effort Cardio regular rate and regular rhythm GI Palpation: tender LLQ Back/Spine no CVA tenderness Neuro CN's II-XII intact bilaterally Sensorium / Orientation: alert Psych mental status grossly normal Skin no wounds MDM MDM MDM Narrative Medical decision making narrative: Patient presenting with left lower quadrant abdominal pain is able to localize this. On examination he is tender in this area without any rebound or guarding. No CVA tenderness. Differential includes kidney stone, UTI, pyelonephritis, diverticulitis, colitis, constipation. CBC was obtained to assess white blood cell count, hemoglobin, platelets. BMP to assess renal function, electrolytes, glucose. Urinalysis to assess for UTI and or occult blood. Patient medicated with Toradol as he does not want a thing stronger for pain is given Zofran for nausea. CT of the abdomen pelvis IV contrast was obtained and shows mild uncomplicated early diverticulitis. Patient counseled on findings. Patient was started on Augmentin with first dose in the ER. He is given Zofran and Augmentin here in the ER and sent home with medications via meds to beds. Return precautions discussed. Discharged home in stable condition. Impression: 1. Abdominal pain 2. Acute uncomplicated diverticulitis 3. Nausea Lab Data Attestation: I reviewed the patient's lab results. Labs: Laboratory Results - last 24 hr 03/05/24 03/05/24 18:15 19:15 WBC 6.6 RBC 4.74 Hgb 15.2 Hct 43.5 MCV 91.8 MCH 32.1 H MCHC 34.9 RDW Std Deviation 40.5 RDW Coeff of Edwin 12.1 Plt Count 92 L MPV 11.0 Immature Gran % (Auto) 0.200 Neut % (Auto) 70.0 Lymph % (Auto) 19.7 [place] % (Auto) 8.8 Eos % (Auto) 0.8 Baso % (Auto) 0.5 Absolute Neuts (auto) 4.6 Absolute Lymphs (auto) 1.29 Nucleated RBC % 0 Sodium 136 Potassium 4.1 Chloride 103 Carbon Dioxide 26.0 Anion Gap 7 BUN 16 Creatinine 0.89 Estim Creat Clear Calc 151.20 Est GFR (MDRD) Af Amer 117 Est GFR (MDRD) Non-Af 96 BUN/Creatinine Ratio 18.0 Glucose 134 H Calcium 9.0 Urine Color Yellow Urine Clarity Sl. Cloudy Urine pH 6.0 Ur Specific [place] 1.015 Urine Protein 15 H Urine Glucose (UA) Normal Urine Ketones Negative Urine Occult Blood Negative Urine Nitrite Negative Urine Bilirubin Negative Urine Urobilinogen Normal Ur Leukocyte Esterase 25 H Urine RBC 0 SEEN Urine WBC 5-10 SEEN Ur Squamous Epith Cells 0-5 SEEN Urine Bacteria 0 SEEN Urine Mucus 0 SEEN Radiography Diagnostic Testing: Clinical Impression(s) from Imaging Studies Abdomen/Pelvis CT 03/05/24 18:22 IMPRESSION: Diverticula in the descending colon with minimal surrounding inflammation which may represent early diverticulitis. There is also minimal haziness in the fat surrounding the rectum possibly representing proctitis. There is no abscess or perforation. Electronically Signed: Gonzales Mckeon MD at 19:43 EDT , Discharge Plan Triage Chief Complaint: Flank Pain ED Provider: Gentry Guzman Dx/Rx/DC Orders Instructions: ED Diverticulitis Prescriptions: New amoxicillin-pot clavulanate 875-125 mg tablet 1 tab PO BID Qty: 20 0RF ondansetron 4 mg tablet,disintegrating 4 mg PO Q8H PRN PRN (Reason: Nausea) Qty: 14 0RF No Action cyclobenzaprine 10 mg tablet 10 mg PO TID PRN (Reason: Muscle Spasm) Qty: 20 0RF glimepiride 2 mg tablet 2 mg PO DAILY Rybelsus 7 mg tablet 14 mg PO DAILY allopurinol 300 mg tablet 300 mg PO DAILY Qty: 90 3RF lisinopril 20 mg tablet 20 mg PO DAILY Qty: 90 3RF metformin 1,000 mg tablet 1,000 mg PO BIDCM Qty: 180 3RF simvastatin 10 mg tablet 20 mg PO DAILY Qty: 90 3RF Primary Care Provider: Carmine Cortez Referrals: Carmine Cortez MD [Primary Care Provider] - Disposition Disposition: Home, Self Care
[2024-03-05] MEDS: Ketorolac 15 MG/ML Vial IV (21:14)
[2024-03-05] MEDS: Amox/Clavulanate 875 MG Tablet PO (21:17)
[2024-03-05 21:20] VITALS: BP 152/101; PULSE 89; RESP 16; TEMP 36.3; O2SAT 99
== END 2024-03-05 21:26 | disposition home or self-care (01) ==
PROVIDERS: Emergency Provider Student in an Organized Health Care Education/Training Program; PCP Family Medicine; Visit Provider Student in an Organized Health Care Education/Training Program
DX: K57.92 Diverticulitis of intestine, part unspecified, without perforation or abscess without bleeding (principal); R11.0 Nausea; I10 Essential (primary) hypertension; E78.00 Pure hypercholesterolemia, unspecified; Z87.442 Personal history of urinary calculi; Z87.19 Personal history of other diseases of the digestive system
CPT/HCPCS: 74177; 80048; 81001; 85025; 96374; 96375; 99284; A4216; J2405

== ENCOUNTER → 2025-06-24 | Outpatient (CLI) | payer OTHER, SELFPAY ==
[2025-06-24 10:58] LABS: Color, Urine Yellow (Yellow); Glucose, Dipstick 1000 mg/dl (Normal); Ketone-Dipstick Negative (Negative); Leukocyte Esterase-Dipstick Negative /ul (Negative); Nitrite-Dipstick Negative (Negative); Occult Blood-Urine Negative /ul (Negative); Protein-Dipstick Negative (Negative); Specific Gravity, Urine 1.015 (1.002-1.030); Urine Bilirubin Dipstick Negative (Negative)
[2025-06-24 11:23] LABS: AST(SGOT) 59 U/L (<=37); Alanine Aminotransfer ALT/SGPT 100 U/L (<=46); Albumin, Serum 4.1 g/dL (3.5-5.0); Alkaline Phosphatase 194 U/L (40-129); Anion Gap 13 (5-15); BUN 11 mg/dL (4-19); BUN/Creat Ratio 13.9 RATIO (10-20); Calcium,Total 9.0 mg/dL (7.6-11.0); Carbon Dioxide 24.2 mmol/L (21.0-32.0); Chloride 101 mmol/L (98-108); Cholesterol 192 mg/dL (<=200); Globulin 3.0 g/dL (2.2-4.2); Glucose 268 mg/dL (70-99); Low Density Lipoprotein Calc. 92 mg/dL; Potassium 4.2 mmol/L (3.3-5.1); Triglycerides 307 mg/dL; Uric Acid 3.9 mg/dL (3.5-7.2); Very Low Density Lipoprotein 61 mg/dL (5-40); cholesterol:hdl ratio screen 5.01
== END | disposition home or self-care (01) ==
PROVIDERS: PCP Family Medicine; Referring Provider Family Medicine; Visit Provider Family Medicine
DX: E11.65 Type 2 diabetes mellitus with hyperglycemia (principal); M10.9 Gout, unspecified
CPT/HCPCS: 36415; 80053; 80061; 81002; 84443; 84550